=== PATIENT | female | born 1965 | race Caucasian/White ===

== ENCOUNTER 2022-09-13 06:32 | Day surgery (SDC) | payer MEDICAID, OTHER ==
[2022-09-13] MEDS ORDERED: Lactated Ringers 1,000 ML IV SCH (07:00)
[2022-09-13] MEDS ORDERED: Propofol 200 MG/20 ML SDV ONE ×2 (08:39→08:42)
== END 2022-09-13 09:51 | disposition home or self-care (01) ==
LOC: JP.SDS 06:32
PROVIDERS: ATTEND Student in an Organized Health Care Education/Training Program
DX: Z12.11 Encounter for screening for malignant neoplasm of colon (principal); K63.5 Polyp of colon; K57.30 Diverticulosis of large intestine without perforation or abscess without bleeding; Z86.010 Personal history of colon polyps
CPT/HCPCS: 45385; 88305; J2704; J7120